=== PATIENT | male | born 1985 | race Caucasian/White ===

== ENCOUNTER 2021-01-19 19:09 | Emergency (ER) | payer BC, SELFPAY ==
[2021-01-19 19:14] VITALS: BP 154/98; PULSE 76; RESP 16; TEMP 37; O2SAT 99; BMI 33.3
--- NOTE | 2021-01-19 19:25 | DI.RAD.S_ITS ---
PROCEDURE: XR ANKLE RT MIN 3V INDICATIONS: pain after increasing running to, unable to weight bear TECHNIQUE: 3 views of the ankle were acquired. COMPARISON: None. FINDINGS: Bones: There is involving fragment inferior to the medial malleolus of indeterminate acuity. Elsewhere, no fractures or dislocations. Ankle mortise is normally aligned. No suspicious bony lesions. Soft tissues: There is periarticular soft tissue swelling over the medial malleolus. There is a tibiotalar joint effusion. Achilles tendon appears intact. IMPRESSION: 1. Avulsion fracture of the medial malleolus of indeterminate acuity. Dictated by: Roosevelt Deluna M.D. on 01/19/2021 at 19:51 Approved by: Roosevelt Deluna M.D. on 01/19/2021 at 19:52
--- NOTE | 2021-01-19 20:31 | PC.NURSE ---
Patient started running a few weeks ago; last run was yesterday 01/18. He started feeling pain in his right ankle today and iced/elevated and took Aleve without relief.
[2021-01-19] MEDS: HYDROCODONE/ACET 5/325 PREPACK 1 BOTTLE MISC (20:52)
--- NOTE | 2021-01-19 21:11 | ED.EXTPRO ---
HPI - Extremity Problem General Chief complaint: Extremity Problem,Nontraumatic Stated complaint: rt ankle pain Time Seen by Provider: 01/19/21 20:03 Source: patient Mode of arrival: Wheelchair Limitations: no limitations History of Present Illness HPI Narrative: 35-year-old male nonsmoker presents with right ankle pain in the absence of any obvious injury. He states that he has been gradually increasing his exercise routine and starting to run more and more. He denies any obvious injury and states that he awoke a day or 2 ago with pain and swelling in his medial ankle. He denies any redness, warmth nor numbness or tingling. He denies any history of the same. He has no knee or hip pain. He denies any swelling in his calf, recent travel or history of blood clot. Related Data Allergies Allergy/AdvReac Type Severity Reaction Status Date / Time No Known Drug Allergies Allergy Verified 01/19/21 19:21 Review of Systems Review of Systems Narrative: GENERAL: Denies chills, fatigue, malaise, fever, sweats. HEENT: Denies sinus pain, ear pain, sore throat, difficulty swallowing, dizziness. RESPIRATORY: Denies dyspnea, cough, wheezing, hemoptysis, sputum. CARDIOVASCULAR: Denies chest pain, palpitations, orthopnea, edema, GASTROINTESTINAL: Denies nausea, vomiting, abdominal pain, diarrhea, constipation, melena. : Denies dysuria, frequency, incontinence, hematuria, urinary retention. MUSCULOSKELETAL: See HPI SKIN: Denies rash, skin lesions, or other NEUROLOGIC: Denies weakness, headache, numbness, change in speech, confusion, seizures, incoordination. PSYCHIATRIC: No concerning psychosocial issues. 12 point review of systems is negative except for those stated above Patient History Social History Smoking Status: Never smoker Smoking Status: Never smoker alcohol intake frequency: 0-2 drinks per day Substance Use Type: marijuana Exam Narrative Exam Narrative: GENERAL: [35] year old patient appears stated age. Well-developed patient, in mild distress. Resting comfortably HEAD: Atraumatic. Normocephalic. EYES: Pupils equal round and reactive. Extraocular motions intact. No scleral icterus. No injection or drainage. ENT: Nose without bleeding, purulent drainage. Throat without erythema, tonsillar hypertrophy or exudate. Airway patent. NECK: Trachea midline. Non tender CARDIOVASCULAR: Regular rate and rhythm without murmurs, gallops, or rubs. RESPIRATORY: Clear to auscultation. Breath sounds equal bilaterally. No wheezes, rales, or rhonchi. GASTROINTESTINAL: Abdomen soft, non-tender, nondistended. EXTREMITIES: Swelling noted at right medial ankle with tenderness to palpation. There is no ligamentous instability. No pain over lateral malleolus or anterior pressure of the talus. No pain on calf squeeze or fibular head. BACK: Nontender without deformity or crepitance. No flank tenderness. NEURO: AOx3. SKIN: No rash or erythema of visible areas Initial Vital Signs Initial Vital Signs: Vital Signs Temperature 98.6 F 01/19/21 19:14 Pulse Rate 76 01/19/21 19:14 Respiratory Rate 16 01/19/21 19:14 Blood Pressure 154/98 H 01/19/21 19:14 Pulse Oximetry 99 01/19/21 19:14 Procedures Orthopedic Splinting/Casting Injury #1: Side: right Lower Extremity Injury Location: ankle Lower Extremity Immobilizer: boot orthosis Other Orthopedic Equipment: crutches Post splinting neuro exam: intact Post splinting vascular exam: intact Placed by: Nursing Course Orders Ordered: Discontinued Medications Hydrocodone Bitart/Acetaminophen (Hydrocodone/Acet 5/325 Prepack) 1 bottle MISC SEEINSTR ONE Stop: 01/19/21 20:41 Last Admin: 01/19/21 20:52 Dose: 1 bottle Documented by: TAISHA Consultations Consultation #1: Discussed with on-call orthopedist (Dr. Barkley) who has reviewed the images and recommends a boot orthosis, weight-bearing as tolerated, crutches and follow-up Vital Signs Vital signs: Vital Signs - 8 hr 01/19/21 19:14 Temperature 98.6 F Pulse Rate 76 Respiratory Rate 16 Blood Pressure 154/98 H Pulse Oximetry 99 MDM - Extremity (Nontraumatic) Imaging Data Extremity x-ray #1: Radiologist's Impression: [address] [id number] ReportSigned Patient: Donna Laird AMR#: [id number]: 1985Acct:[id number]/Sex: 35 / MDate of Service: 01/19/21Loc: EDAccession Number: [id number] Procedure: XR ankle RT min 3V Ordering Provider: Shimon Barboza D.O. PROCEDURE: XR ANKLE RT MIN 3V INDICATIONS: pain after increasing running to, unable to weight bear TECHNIQUE: 3 views of the ankle were acquired. COMPARISON: None. FINDINGS: Bones: There is involving fragment inferior to the medial malleolus of indeterminate acuity. Elsewhere, no fractures or dislocations. Ankle mortise is normally aligned. No suspicious bony lesions. Soft tissues: There is periarticular soft tissue swelling over the medial malleolus. There is a tibiotalar joint effusion. Achilles tendon appears intact. IMPRESSION: 1. Avulsion fracture of the medial malleolus of indeterminate acuity. Dictated by: Roosevelt Deluna M.D. on 01/19/2021 at 19:51 Approved by: Roosevelt Deluna M.D. on 01/19/2021 at 19:52 Discharge Plan Departure Patient Disposition: Home Clinical Impression: Ankle fracture Qualifiers: Encounter type: initial encounter Fracture type: closed Laterality: right Qualified Code(s): S82.891A - Other fracture of right lower leg, initial encounter for closed fracture Instructions: DI for Ankle Fracture Activity Restrictions/Additional Instructions: *You have been diagnosed with [Right Ankle Fracture ] *What to do: *Please continue to take your regular medications as directed. [ ] New medication prescriptions sent to your pharmacy: [ ] [ ] New medication written as a paper prescription [x ] No new medications given *Please follow up with Dr. Barkley at [facility] in 2-3 days, call for an appointment. Let them know you were seen in the Emergency Department and that we ask that you be seen in follow up. We will electronically transmit a record of today's note if your PCP is in our system *If you do not have a primary care provider please contact the [facility] Resource line at [phone]. They will ask some questions about your medical history and help get you set up with a doctor in the community. *Return to Emergency Department if you should have any new, worsening or concerning symptoms, such as [fever greater than 101 F, shaking chills, worsening pain, persistent vomiting or other bothersome symptoms] Referrals: Stephen Barkley MD [Physician] -
== END 2021-01-19 21:13 | disposition home or self-care (01) ==
PROVIDERS: Emergency Provider Emergency Medicine
DX: S82.891A Other fracture of right lower leg, initial encounter for closed fracture (principal)
CPT/HCPCS: 73610; 99282; 99283